=== PATIENT | male | born 1980 | race African-American/Black ===

== ENCOUNTER 2020-06-26 02:26 | Emergency (ER) | payer SELFPAY ==
[~2020-06-26] VITALS: Ht 185.4 cm; Wt 109.0 kg
--- NOTE | 2020-06-26 05:46 | RAD ---
INDICATION: Reason: cough / Spl. Instructions: / History: COMPARISON: None. FINDINGS: Single view of chest obtained. There is some fullness of the right pulmonary hilum. Mild interstitial prominence at upper lobes. Left lung base is obscured by the overlying cardiac silhouette. Cardiac silhouette is near the upper limits of normal in size. IMPRESSION: * Mild fullness of the right pulmonary hilum with some prominent interstitial markings. Could be secondary to pulmonary vascular congestion or perihilar infiltrate. A right hilar mass would be less common in a patient of this age but follow-up could be obtained to ensure that this decreases in conspicuity. Electronically signed by: Pietro Stephenson MD (06/26/2020 5:43 AM) [id number]
[2020-06-26] MEDS ORDERED: ALBU2.5V8 IH (06:18)
[2020-06-26] MEDS ORDERED: AZIT250T PO (06:18)
[2020-06-26] MEDS ORDERED: PRED20TA PO (06:18)
--- NOTE | 2020-06-26 06:18 | PHYS DOC ---
Past Medical History Past Medical History: Asthma Past Surgical History: Other Additional Past Surgical Histo: HAND SURGERY Smoking Status: Current Every Day Smoker Alcohol Use: Occasionally General Adult EDM: Chief Complaint: COUGH HPI: HPI: Patient is a 40 year old [f__sex] who presents with [] Review of Systems: Review of Systems: Constitutional: Denies fever or chills. [] Eyes: Denies change in visual acuity. [] HENT: Denies nasal congestion or sore throat. [] Respiratory: Denies cough or shortness of breath. [] Cardiovascular: Denies chest pain or edema. [] GI: Denies abdominal pain, nausea, vomiting, bloody stools or diarrhea. [] : Denies dysuria. [] Musculoskeletal: Denies back pain or joint pain. [] Integument: Denies rash. [] Neurologic: Denies headache, focal weakness or sensory changes. [] Endocrine: Denies polyuria or polydipsia. [] Lymphatic: Denies swollen glands. [] Psychiatric: Denies depression or anxiety. [] Heart Score: Risk Factors: Risk Factors: DM, Current or recent (<one month) smoker, HTN, HLP, family history of CAD, obesity. Risk Scores: Score 0 - 3: 2.5% MACE over next 6 weeks - Discharge Home Score 4 - 6: 20.3% MACE over next 6 weeks - Admit for Clinical Observation Score 7 - 10: 72.7% MACE over next 6 weeks - Early Invasive Strategies Allergies: Allergies: Allergies Coded Allergies Type Severity Reaction Last Updated Verified No Known Drug Allergies 06/26/20 No Physical Exam: PE: Constitutional: Well developed, well nourished, no acute distress, non-toxic appearance. [] HENT: Normocephalic, atraumatic, bilateral external ears normal, oropharynx moist, no oral exudates, nose normal. [] Eyes: PERRLA, EOMI, conjunctiva normal, no discharge. [] Neck: Normal range of motion, no tenderness, supple, no stridor. [] Cardiovascular:Heart rate regular rhythm, no murmur [] Lungs & Thorax: Bilateral breath sounds clear to auscultation [] Abdomen: Bowel sounds normal, soft, no tenderness, no masses, no pulsatile masses. [] Skin: Warm, dry, no erythema, no rash. [] Back: No tenderness, no CVA tenderness. [] Extremities: No tenderness, no cyanosis, no clubbing, ROM intact, no edema. [] Neurologic: Alert and oriented X 3, normal motor function, normal sensory function, no focal deficits noted. [] Psychologic: Affect normal, judgement normal, mood normal. [] Current Patient Data: Vital Signs: Vital Signs Date Time Temp Pulse Resp B/P (MAP) Pulse Ox O2 Delivery O2 Flow Rate FiO2 06/26/20 05:00 98.5 104 20 157/101 (119) 96 Room Air 98.5 EKG: EKG: [] Radiology/Procedures: Radiology/Procedures: [] Course & Med Decision Making: Course & Med Decision Making Pertinent Labs and Imaging studies reviewed. (See chart for details) [] Dragon Disclaimer: Dragon Disclaimer: This electronic medical record was generated, in whole or in part, using a voice recognition dictation system. Departure Departure Impression: Primary Impression: Suspected 2019 novel coronavirus infection Additional Impression: Bronchitis Disposition: HOME, SELF-CARE Condition: STABLE Referrals: NO PCP (PCP) Patient Instructions: Acute Bronchitis, [id number] Additional Instructions: You have been tested for or diagnosed with COVID-19. It is an infection caused by a new type of coronavirus. COVID-19 will cause cold-like or mild flu symptoms in most. It can cause more severe symptoms like problems breathing in some. There is no treatment for COVID-19. The body will clear the infection over time. Self-care will help to ease discomfort. Steps to Take: Self-Care Rest as needed. Healthy habits may help you feel better. Steps include: Choose healthy foods including fruits and vegetables. Drink water throughout the day. Get plenty of sleep each night. If you smoke, try to quit. It may ease breathing. Avoid alcohol. Keep Others Healthy The virus can spread to others. Droplets are released every time you sneeze or cough. The droplets can get into the mouth, nose, or eyes of people near you and lead to infection. To lower the chances of spreading COVID-19 to others: Stay at home until your doctor has said it is safe to leave. If you tested positive this will mean staying isolated until both of the following are true: At least 7 days have passed since the start of illness. You are free of fever for at least 72 hours without the use of medicine. During this time: - Avoid public areas, events, or transportation. Do not return to work or school until your doctor has said it is safe to do so. - Call ahead if you need to go to a medical center. Let them know you may have COVID-19. It will help them guide you where to go. They may also ask you to wear a facemask when you come to the office. - If you call for emergency medical services, let them know you may have COVID- 19. While at home: - Try to avoid close contact with others. Stay about 6 feet away. - If possible, spend most of your time in a separate room from others. - Use a face mask if you will be in close contact with others such as sharing a room or vehicle. - Have someone wipe down common surfaces in the home. Use household fine arts instructor every day on areas like doorknobs, counters, or sinks. - Cough or sneeze into a tissue. Throw the tissue away right after use. If a tissue is not available, cough or sneeze into your elbow. - Wash your hands often. Wash them after sneezing or coughing. Use soap and water and wash for at least 20 seconds. Alcohol based hand ceiling cleaner can be used if soap and water is not available. - Do not prepare food for others. Avoid sharing personal items like forks, spoons, or toothbrushes. - Avoid close contact with pets while you are sick. There is no evidence of the virus passing to pets. This is a safety step until more is known about this virus. Isolation can be frustrating. Social interaction can help. Keep in touch with friends and family through phone and tech options. You can still interact with others in your home, just keep a safe distance of about 6 feet. Follow-up: Your doctors office will check in with you to see if there are any changes in your health. You may be asked to keep track of symptoms to share with them. They will also let you know when you are clear to be in public again. Problems to Look Out For: Contact your doctor if your recovery is not going as you expect. Get emergency care if you have problems such as: - Trouble breathing - Nonstop chest pain or pressure - Changes in awareness, confusion, or problems waking - Lips or face have bluish color - Worsening of symptoms If you think you have an emergency, call for emergency medical services right away. As taken from [facility] Azithromycin (ZITHROMAX) 250 Mg Tablet 1 PKG PO UD for bronchitis, #6 TAB Take 2 tablets on day 1 and then 1 tablet each day for the next 4 days as directed Prov: IRMA SILVA DO 06/26/20 Prednisone (PREDNISONE) 20 Mg Tablet 2 TAB PO DAILY for 5 Days, #10 TAB Prov: IRMA SILVA DO 06/26/20 Albuterol Sulfate (PROAIR HFA INHALER) 8.5 Gm Hfa.aer.ad 2 PUFF IH PRN Q4-6HRS PRN for wheezing, #1 INHALER 0 Refills Prov: IRMA SILVA DO 06/26/20 Justicifation of Admission Dx: Justifications for Admission: Justification of Admission Dx: N/A IRMA SILVA DO Jun 26, 2020 06:18
[2020-06-26 06:34] VITALS: BP 176/95
--- NOTE | 2020-06-27 09:20 | NUR ---
IP: Attempted to call COVID results. No answer.
== END 2020-06-26 06:34 | disposition home or self-care (01) ==
LOC: ER 02:26
DX: J45.909 Unspecified asthma, uncomplicated (principal); Z20.828 Contact with and (suspected) exposure to other viral communicable diseases; F17.200 Nicotine dependence, unspecified, uncomplicated
CPT/HCPCS: 71045; 99284; U0003

== ENCOUNTER 2020-07-06 22:58 | Emergency (ER) | payer SELFPAY ==
[~2020-07-06] VITALS: Ht 185.4 cm; Wt 112.7 kg
[~2020-07-06 22:58] MED LIST: ALBU2.5V8 IH; AZIT250T PO; PRED20TA PO
[2020-07-06 23:10] VITALS: BP 97/67
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
[2020-07-06] MEDS ORDERED: TETANUS AND DIPHTHERIA TOX/PF 0.5 ML DISP.SYRIN. VAX IM ONE (23:30)
--- NOTE | 2020-07-07 00:02 | RAD ---
Examination: 3 views of the left hand HISTORY: History of fall Comparison: none available Findings/ impression: 1. Minimal displaced fracture of the base of the first metacarpal at its base. A tiny bony density identified lateral to the head of the first metacarpal could be old avulsion fracture or soft tissue calcification. Electronically signed by: Bruce Servin MD (07/06/2020 11:59 PM) [id number]
[2020-07-07] MEDS ORDERED: HYDR-3164 PO (00:15)
[2020-07-07] MEDS ORDERED: HYDROcodone/APAP 7.5/325MG 1 TAB TABLET PO ONE (00:15)
== END 2020-07-07 00:28 | disposition home or self-care (01) ==
LOC: ER 22:58
DX: S62.232A Other displaced fracture of base of first metacarpal bone, left hand, initial encounter for closed fracture (principal); S01.01XA Laceration without foreign body of scalp, initial encounter; J45.909 Unspecified asthma, uncomplicated; F17.200 Nicotine dependence, unspecified, uncomplicated; V29.9XXA Motorcycle rider (driver) (passenger) injured in unspecified traffic accident, initial encounter; Y93.55 Activity, bike riding; Y92.488 Other paved roadways as the place of occurrence of the external cause; Y99.8 Other external cause status
CPT/HCPCS: 12001; 29125; 73130; 90471; 90714; 99283

== ENCOUNTER 2020-07-13 17:02 | Emergency (ER) | payer SELFPAY ==
[~2020-07-13] VITALS: Ht 185.4 cm; Wt 112.3 kg
[~2020-07-13 17:02] MED LIST changes: +HYDR-3164 PO
[2020-07-13 17:08] VITALS: BP 160/91
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
== END 2020-07-13 17:35 | disposition home or self-care (01) ==
LOC: ER 17:02
DX: S01.01XD Laceration without foreign body of scalp, subsequent encounter (principal); J45.909 Unspecified asthma, uncomplicated; F17.200 Nicotine dependence, unspecified, uncomplicated; Z98.890 Other specified postprocedural states; V29.9XXD Motorcycle rider (driver) (passenger) injured in unspecified traffic accident, subsequent encounter
CPT/HCPCS: 99282

== ENCOUNTER 2020-10-27 04:14 | Emergency (ER) | payer BC ==
[~2020-10-27] VITALS: Ht 185.4 cm; Wt 102.3 kg
--- NOTE | 2020-10-27 04:37 | PHYS DOC ---
Past Medical History Past Medical History: Asthma (LEEANN RODRIGES DO) Past Surgical History: Other Additional Past Surgical Histo: HAND SURGERY (LEEANN RODRIGES DO) Smoking Status: Current Every Day Smoker Alcohol Use: Occasionally (LEEANN RODRIGES DO) General Adult EDM: Chief Complaint: CHEST PAIN HPI: HPI: Patient is a 40 year old male who is currently on no prescription medications presents with a chief complaint of palpitations. Patient states palpitations started approximately 1 hour prior to arrival. Patient states he was laying down to go to bed and felt his heart racing. He denies any associated chest pain or shortness of breath. Patient does admit to heavy drinking tonight. Patient does have a past history of femur fracture with surgical repair. Patient surgery was September 11. Patient states at that time he was placed on Lovenox but did not complete his last 3 treatments. Patient's last dose was greater than 2 weeks ago. On exam patient is tachycardic with heart rates in the 120s while at rest. Patient's lungs are clear. There is no bilateral lower extremity swelling. EKG performed shows a heart rate in the 127's. (LEEANN RODRIGES DO) Review of Systems: Review of Systems: Constitutional: Denies fever or chills. [] Eyes: Denies change in visual acuity. [] HENT: Denies nasal congestion or sore throat. [] Respiratory: Denies cough or shortness of breath. [] Cardiovascular: Positive tachycardia GI: Denies abdominal pain, nausea, vomiting, bloody stools or diarrhea. [] : Denies dysuria. [] Musculoskeletal: Denies back pain or joint pain. [] Integument: Denies rash. [] Neurologic: Denies headache, focal weakness or sensory changes. [] Endocrine: Denies polyuria or polydipsia. [] Lymphatic: Denies swollen glands. [] Psychiatric: Denies depression or anxiety. [] (LEEANN RODRIGES DO) Heart Score: HEART Score for Chest Pain: HEART Score for Chest Pain Response (Comments) Value History Slighlty/Non-Suspicious 0 ECG Normal 0 Age < 45 0 Risk Factors No Risk Factors 0 Troponin < Normal Limit 0 Total 0 Risk Factors: Risk Factors: DM, Current or recent (<one month) smoker, HTN, HLP, family history of CAD, obesity. Risk Scores: Score 0 - 3: 2.5% MACE over next 6 weeks - Discharge Home Score 4 - 6: 20.3% MACE over next 6 weeks - Admit for Clinical Observation Score 7 - 10: 72.7% MACE over next 6 weeks - Early Invasive Strategies (ANTELMOLEEANN Rj TORRES) Current Medications: Current Medications Medications (Trade) Dose Ordered Sig/Sandy Start Time Stop Time Status Last Admin Dose Admin Sodium Chloride 1,000 ml @ 1,000 mls/hr 1X ONCE 10/27/20 05:00 10/27/20 05:59 (LEEANN RODRIGES DO) Allergies: Allergies: Allergies Coded Allergies Type Severity Reaction Last Updated Verified No Known Drug Allergies 06/26/20 No (LEEANN RODRIGES DO) Physical Exam: PE: Constitutional: Well developed, well nourished, no acute distress, non-toxic appearance. [] HENT: Normocephalic, atraumatic, bilateral external ears normal, oropharynx moist, no oral exudates, nose normal. [] Eyes: PERRLA, EOMI, conjunctiva normal, no discharge. [] Neck: Normal range of motion, no tenderness, supple, no stridor. [] Cardiovascular: Tachycardia Lungs & Thorax: Bilateral breath sounds clear to auscultation [] Abdomen: Bowel sounds normal, soft, no tenderness, no masses, no pulsatile masses. [] Skin: Warm, dry, no erythema, no rash. [] Back: No tenderness, no CVA tenderness. [] Extremities: No tenderness, no cyanosis, no clubbing, ROM intact, no edema. [] Neurologic: Alert and oriented X 3, normal motor function, normal sensory function, no focal deficits noted. [] Psychologic: Affect normal, judgement normal, mood normal. [] (LEEANN RODRIGES DO) EKG: EKG: EKG performed at 042 1 hours heart rate [address] elevation no ST depression no acute IL [] (LEEANN RODRIGES DO) Radiology/Procedures: Radiology/Procedures: [] Impression: Chest x-ray wet read no focal infiltrate (LEEANN RODRIGES DO) Course & Med Decision Making: Course & Med Decision Making Pertinent Labs and Imaging studies reviewed. (See chart for details) [] Patient was evaluated for chief complaint. Work-up consisted of laboratory analysis and radiologic imaging. Results reviewed and discussed with patient and significant other. Patient noted to have a potassium of 3.3. EKG sinus tachycardia. Treatment included 2 L of IV fluid--post treatment heart rate continues to be in the 120's. .Patient's D-dimer noted to be elevated. CT angio chest ordered and pending. Patient signed out to Dr Salvador pending CT imaging and re-evaluation. (LEEANN RODRIGES DO) Course & Med Decision Making AT 7:10 AM, PATIENT DEMANDED TO BE RELEASED DEEP. THIS PHYSICIAN DISCUSSED WITH PATIENT THAT THE CT SCAN OF HIS CHEST WAS DONE, RADIOLOGY REPORT IS STILL PENDING, ASKED HIM TO WAIT FOR RADIOLOGY REPORT BUT PATIENT WAS ADAMANT ABOUT GOING HOME. HE WAS AWAKE, ALERT, ORIENTED. HE SIGNED OUT AGAINST MEDICAL ADVISE. (BRYAN SALVADOR DO) Dragon Disclaimer: Gladys Disclaimer: This electronic medical record was generated, in whole or in part, using a voice recognition dictation system. (LEEANN RODRIGES DO) Departure Departure Impression: Primary Impression: Palpitations Additional Impressions: Hypokalemia Elevated liver enzymes Disposition: 07 AMA/ELOPED/LWBS Condition: STABLE Referrals: NO PCP (PCP) Patient Instructions: Hypokalemia, Palpitations Scripts Potassium Chloride (POTASSIUM CHLORIDE ) 20 Meq Tablet.er 20 MEQ PO DAILY for SUPPLEMENT for 7 Days, #7 TAB.SR Prov: LEEANN RODRIGES DO 10/27/20 LEEANN RODRIGES DO Oct 27, 2020 04:37 BRYAN SALVADOR DO Oct 27, 2020 07:12
[2020-10-27 04:44] LABS: BASO # 0.1 x10^3/uL (0.0-0.2); BASO % 1 % (0-3); EOS % 0 % (0-3); HEMATOCRIT 41.3 % (39.0-53.0); HEMOGLOBIN 13.8 g/dL (13.0-17.5); LYMPH # 1.9 x10^3/uL (1.0-4.8); LYMPH % 13 % (24-48); MEAN CORPUSCULAR HEMOGLOBIN 28 pg (25-35); MEAN CORPUSCULAR HGB CONC 33 g/dL (31-37); MEAN CORPUSCULAR VOLUME 84 fL (79-100); MONO # 0.8 x10^3/uL (0.0-1.1); MONO % 6 % (0-9); NEUT # 11.2 x10^3/uL (1.8-7.7); NEUT % 80 % (31-73); PLATELET COUNT 240 x10^3/uL (140-400); RED BLOOD COUNT 4.89 x10^6/uL (4.30-5.70); RED CELL DISTRIBUTION WIDTH 14.4 % (11.5-14.5)
[2020-10-27 04:54] LABS: CALCIUM 9.7 mg/dL (8.5-10.1); CREATININE 1.2 mg/dL (0.7-1.3); POTASSIUM 3.3 mmol/L (3.5-5.1)
[2020-10-27 05:00] LABS: ALBUMIN 3.8 g/dL (3.4-5.0); TOTAL BILIRUBIN 0.4 mg/dL (0.2-1.0); TOTAL PROTEIN 7.7 g/dL (6.4-8.2)
[2020-10-27] MEDS ORDERED: IV NORMAL SALINE 1000ML BAG 1,000 ML IV ONE ×2 (05:00→06:00)
[2020-10-27] MEDS ORDERED: POTA20TA4 PO (05:44)
--- NOTE | 2020-10-27 06:20 | RAD ---
INDICATION: Reason: chest pain palpitations / Spl. Instructions: / History: COMPARISON: June 26, 2020 FINDINGS: Single view of chest obtained. No focal airspace consolidation. Cardiomediastinal contour unremarkable. No acute osseous abnormality. IMPRESSION: * No focal airspace consolidation or edema. Electronically signed by: Pietro Stephenson MD (10/27/2020 6:17 AM) [id number]
[2020-10-27] MEDS ORDERED: CONTRAST GIVEN. MC PRN (06:30)
[2020-10-27] MEDS ORDERED: IOHEXOL 350 MG/ML 100 ML VIAL. IV ONE (07:00)
[2020-10-27 07:10] VITALS: BP 167/90
--- NOTE | 2020-10-27 07:17 | RAD ---
INDICATION: Reason: tachycardia, omni 350, 100 ml iv / Spl. Instructions: / History: COMPARISON: Chest x-ray from earlier same day TECHNIQUE: Axial CT images obtained through the chest. Intravenous contrast utilized. Angiogram 3D images proce ssed per protocol. One or more of the following individualized dose reduction techniques were utilized for this examinat ion: 1. Automated exposure control; 2. Adjustment of the mA and/or kV according to patient size; 3 . Use of iterative reconstruction technique. FINDINGS: No evidence of pneumothorax. Nodule along the fissure on the right measuring up to approximately 6 mm. Small hiatal hernia. Partially visualized liver is low density which can be seen with fatty infiltration. Low-density at the left renal pelvis partially seen measuring up to 34 mm. Portion of ascending thoracic aorta is obscured by motion but no aneurysm or dissection flap in the v isualized portion. No embolus in the central pulmonary arteries with more peripheral vessels limited secondary to subopt imal contrast bolus and motion. IMPRESSION: No central pulmonary embolus. Limitation peripherally secondary to contrast bolus timing. Nodule along the fissure on the right. Could be a fissural lymph node. No evidence of pneumothorax or focal airspace consolidation. There is some air and debris within the distal esophagus. There is also suspected small hiatal hernia as well as some prominence the wall the distal esophagus. Would correlate with symptoms in the regio n to ensure that this prominence the wall isn't pathologic in nature from causes such as esophagitis or reflux. The liver is partially seen and appears low density which can be seen with fatty infiltration. Partial visualization of the left kidney with low density structure seen centrally. Possible causes w ould include a peripelvic cyst as well as focal dilatation of the collecting system. This is only par tially seen. Electronically signed by: Pietro Stephenson MD (10/27/2020 7:14 AM) [id number]
--- NOTE | 2020-10-27 16:04 | EKG ---
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
== END 2020-10-27 07:15 | disposition left against medical advice (07) ==
LOC: ER 04:14
DX: R00.2 Palpitations (principal); E87.6 Hypokalemia; R74.8 Abnormal levels of other serum enzymes; R00.0 Tachycardia, unspecified; J45.909 Unspecified asthma, uncomplicated; F17.200 Nicotine dependence, unspecified, uncomplicated; Z98.890 Other specified postprocedural states
CPT/HCPCS: 36415; 71045; 71275; 80053; 84484; 85025; 85379; 93005; 96360; 99285; G0480; J7030; Q9967